=== PATIENT | male | born 1970 | race Caucasian/White ===

== ENCOUNTER 2017-01-09 11:52 | Emergency (ER) | payer MEDICARE ==
[~2017-01-09] VITALS: Ht 177.8 cm; Wt 58.2 kg
[2017-01-09 12:16] VITALS: BP 117/74
[2017-01-09] MEDS ORDERED: LIDOCAINE 1%, 20ML ONE (12:28)
[2017-01-09] MEDS ORDERED: DIPH,PERTUSS(ACELL),TET VAC/PF 0.5 ML IM-VACC ONE ×2 (12:29→12:30)
[2017-01-09] MEDS ORDERED: HYDROcodone/APAP 5/325 TABLET ONE (12:29)
[2017-01-09] MEDS ORDERED: HYDROcodone/APAP 5/325 TABLET PO ONE (12:30)
[2017-01-09] MEDS ORDERED: LIDOCAINE 1%, 20ML SQ ONE (12:30)
== END 2017-01-09 14:33 | disposition home or self-care (01) ==
LOC: ED 14:10
DX: S61.217A Laceration without foreign body of left little finger without damage to nail, initial encounter (principal); W54.0XXA Bitten by dog, initial encounter; Y93.89 Activity, other specified; Y92.89 Other specified places as the place of occurrence of the external cause; Y99.8 Other external cause status
CPT/HCPCS: 12002; 90471; 90715